=== PATIENT | female | born 1985 | race African-American/Black ===

== ENCOUNTER 2019-04-03 09:48 | Emergency (ER) | payer MEDICAID ==
[~2019-04-03] VITALS: Ht 167.6 cm; Wt 72.6 kg
[2019-04-03 09:48] VITALS: BP_SYST 117
--- NOTE | 2019-04-03 09:48 | NUR ---
BROUGHT BACK TO BED #8 AND TRIAGED. REPORT GIVEN TO PREET
--- NOTE | 2019-04-03 10:01 | NUR ---
Patient is awake, alert, and oriented x4. Patient states she stepped on a mendoza nail and it went through her shoe. Patient presents with small puncture wound to the arch of her left foot, aching pain. No bleeding noted.
--- NOTE | 2019-04-03 10:09 | NUR ---
ER Dr. Mo at bedside examining patient.
[2019-04-03] MEDS ORDERED: DIPH-TET-PERTUS Vaccine 0.5 ML VIAL (ADACEL) I.M. ONE (10:15)
[2019-04-03 10:26] VITALS: BP_SYST 117
--- NOTE | 2019-04-03 10:26 | NUR ---
Patient given written and verbal discharge instructions and verbalizes understanding. ER MD discussed with patient the results and treatment provided. Patient in stable condition. ID arm band removed. Rx of ciprofloxacin given. Patient educated on pain management and to follow up with PMD. Pain Scale 0/10. Opportunity for questions provided and answered. Medication side effect fact sheet provided.
== END 2019-04-03 10:26 | disposition home or self-care (01) ==
LOC: SED 09:48
DX: S91.332A Puncture wound without foreign body, left foot, initial encounter (principal); W45.0XXA Nail entering through skin, initial encounter; Y93.89 Activity, other specified; Y92.89 Other specified places as the place of occurrence of the external cause; Y99.8 Other external cause status
CPT/HCPCS: 90715; 99283

== ENCOUNTER 2019-12-08 21:34 | Emergency (ER) | payer MEDICAID ==
[~2019-12-08] VITALS: Ht 167.6 cm; Wt 78.0 kg
[2019-12-08 21:42] VITALS: BP_SYST 106
[2019-12-09 00:42] VITALS: BP_SYST 110
== END 2019-12-09 00:42 | disposition home or self-care (01) ==
LOC: SED 21:34
DX: S43.401A Unspecified sprain of right shoulder joint, initial encounter (principal); X50.9XXA Other and unspecified overexertion or strenuous movements or postures, initial encounter; Y93.89 Activity, other specified; Y92.89 Other specified places as the place of occurrence of the external cause; Y99.8 Other external cause status
CPT/HCPCS: 73030; 99283